=== PATIENT | female | born 1965 | race Native Hawaiian/Other Pacific Islander ===

== ENCOUNTER 2016-10-16 08:20 | Outpatient (CLI) | payer OTHER ==
--- NOTE | 2016-10-16 14:18 | Mammography Report ---
BILATERAL DIGITAL SCREENING MAMMOGRAM with CAD: 10/16/16 08:20:00 CLINICAL: Routine screening. COMPARISON:09/17/15 FINDINGS: The breasts are heterogeneously dense, which may obscure small masses. No mass, architectural distortion or suspicious calcifications. IMPRESSION: No mammographic evidence of malignancy. BI-RADS CATEGORY: 1 - - Negative RECOMMENDATION: Routine mammographic screening in one year. COMMENT: Patient follow-up letters are generated by our [employer] application.
== END 2016-10-16 08:21 | disposition home or self-care (01) ==
LOC: SPVWC 08:20
DX: Z12.31 Encounter for screening mammogram for malignant neoplasm of breast (principal)
CPT/HCPCS: 77067; G0202

== ENCOUNTER 2017-10-20 08:37 | Outpatient (CLI) | payer OTHER ==
--- NOTE | 2017-10-20 11:31 | Mammography Report ---
BILATERAL DIGITAL SCREENING MAMMOGRAM with CAD: 10/20/17 08:37:00 CLINICAL: Routine screening. COMPARISON:10/16/16 FINDINGS: The breasts are heterogeneously dense, which may obscure small masses. No mass, architectural distortion or suspicious calcifications. IMPRESSION: No mammographic evidence of malignancy. BI-RADS CATEGORY: 1 - - Negative RECOMMENDATION: Routine mammographic screening in one year. COMMENT: Patient follow-up letters are generated by our [employer] application.
== END 2017-10-20 08:38 | disposition home or self-care (01) ==
LOC: SPVWC 08:37
PROVIDERS: ATTEND Internal Medicine
DX: Z12.31 Encounter for screening mammogram for malignant neoplasm of breast (principal)
CPT/HCPCS: 77067

== ENCOUNTER 2018-12-03 08:27 | Outpatient (CLI) | payer OTHER ==
--- NOTE | 2018-12-03 14:58 | Mammography Report ---
DIGITAL SCREENING MAMMOGRAM WITH CAD, 12/03/2018 INDICATION: Routine screening mammography. TECHNIQUE: Digital bilateral 2D mammography was obtained in the craniocaudal and mediolateral obliq ue projections. This examination was interpreted with the benefit of Computer-Aided Detection analysi s. COMPARISON: 10/20/2017 FINDINGS: Breast Density: The breasts are heterogeneously dense, which may obscure small masses. There is no evidence of dominant mass, suspicious calcifications or architectural distortion in eithe r breast. IMPRESSION: Follow up recommendation: Routine yearly BI-RADS Category 1: Negative. A "normal" or negative report should not discourage follow up or biopsy of a clinically significant f inding. A written summary of these findings will be mailed to the patient. The patient will be entered into a mammography reporting system which will generate a reminder letter for the patient's next appointmen t at the appropriate interval. The [employer] recommends yearly mammograms starting at age 40 and continuing as l kendra as a woman is in good health. Breast MRI is recommended for women with an approximate 20-25% or greater lifetime risk of breast cancer, including women with a strong family history of breast or ova chuy cancer or who have been treated for Hodgkin's disease. Signer Name: Venancio Gamboa MD Signed: 12/03/2018 2:53 PM Workstation Name: [id number]
== END 2018-12-03 08:28 | disposition home or self-care (01) ==
LOC: SPVWC 08:27
PROVIDERS: ATTEND Internal Medicine
DX: Z12.31 Encounter for screening mammogram for malignant neoplasm of breast (principal)
CPT/HCPCS: 77067

== ENCOUNTER 2020-01-24 08:00 | Outpatient (CLI) | payer OTHER ==
--- NOTE | 2020-01-26 17:59 | Mammography Report ---
DIGITAL SCREENING MAMMOGRAM WITH CAD, 01/26/2020 INDICATION: Routine screening mammography. TECHNIQUE: Digital bilateral 2D mammography was obtained in the craniocaudal and mediolateral obliq ue projections. This examination was interpreted with the benefit of Computer-Aided Detection analysi s. COMPARISON: Prior mammograms 12/03/2018 and 10/20/2017 FINDINGS: Breast Density: The breasts are extremely dense, which lowers the sensitivity of mammography. There is no evidence of dominant mass, suspicious calcifications or architectural distortion in eithe r breast. There has been no significant change compared with the prior examinations. IMPRESSION: Follow up recommendation: Routine yearly BI-RADS Category 1: Negative. A "normal" or negative report should not discourage follow up or biopsy of a clinically significant f inding. A written summary of these findings will be mailed to the patient. The patient will be entered into a mammography reporting system which will generate a reminder letter for the patient's next appointmen t at the appropriate interval. The [employer] recommends yearly mammograms starting at age 40 and continuing as l kendra as a woman is in good health. Breast MRI is recommended for women with an approximate 20-25% or greater lifetime risk of breast cancer, including women with a strong family history of breast or ova chuy cancer or who have been treated for Hodgkin's disease. Signer Name: Lauren Montemayor MD Signed: 01/26/2020 5:54 PM Workstation Name: [id number]
== END 2020-01-24 08:01 | disposition home or self-care (01) ==
LOC: SPVWC 08:00
PROVIDERS: ATTEND Internal Medicine
DX: Z12.31 Encounter for screening mammogram for malignant neoplasm of breast (principal)
CPT/HCPCS: 77067

== ENCOUNTER 2021-03-15 09:11 | Outpatient (CLI) | payer OTHER | END 2021-03-15 09:12 | disposition home or self-care (01) | LOC: SPVWC 09:11 | PROVIDERS: ATTEND Internal Medicine | DX: Z12.31 Encounter for screening mammogram for malignant neoplasm of breast (principal) | CPT/HCPCS: 77067 ==